=== PATIENT | female | born 1960 | race Caucasian/White ===

== ENCOUNTER 2018-12-02 19:36 | Emergency (ER) | payer OTHER ==
[2018-12-02 19:43] VITALS: BP 91/58; PULSE 92; TEMP 98.3; BMI 23.2
[2018-12-02] MEDS ORDERED: LIDOCAINE VISCOUS 2% ORAL/TOP 20 ML UNIT-DOSE CUP MM ONE (20:22)
[2018-12-02] MEDS ORDERED: FAMOTIDINE 20 MG/50 ML IVPB 20 MG/50 ML MG IVPB ONE ×2 (20:22→21:00)
[2018-12-02] MEDS ORDERED: MAG HYDROX/AL HYDROX/SIMETH 30 ML UNIT-DOSE CUP PO ONE (20:22)
[2018-12-02] MEDS ORDERED: SODIUM CHLORIDE 0.9% 500 ML INFUS.BAG IV ONE (20:22)
--- NOTE | 2018-12-02 20:22 | PDOC ---
History of Present Illness - General Chief Complaint: Nausea/Vomiting Stated Complaint: DIZZY,NAUSEA,DIABETIC - History of Present Illness Initial Comments: The patient is a 58F w/ a history of T2DM, s/p L second toe amputation, s/p R ureteral stent, and recent diagnosis of pyelonephritis on Bactrim who presents for 1 month N/V. She was seen yesterday in [facility] where she had a CT scan but states that her symptoms are not better. She reports the vomit is yellow, non- bloody, and the nausea is worse post-prandially 12/02/18 20:29 Patient w/ CT A&P on 12/02/2018 @ 0234 at [facility] Impression -Indwelling double pigtail right-sided ureteral stent extending from the right renal collecting system along the course of the right ureter and into the bladder -Moderate R-sided hydronephrosis and mild to moderate R-sided hydroureter despite the indwelling stent. Heterogenous enhancement of both kidneys more pronounced on the right side than the left. Findings could be secondary to stent malfunction and/or pyelonephritis. -Choleilthiasis. Nonspecific enhancement of the wall of the gallbladder. Intra and extrahepatic bile duct dilation. The etiology of which is not determined. Multiple etiologies could produce this appearance including bile duct stone. ( 4mm stone; extrahepatic bile duct 9.1mm) Cr there 1.2 Patient currently taking Bactrim for pyelonephritis Patient prescribed Zofran for nausea, but reports little symptomatic relief 12/02/18 21:27 Denies fevers/chills, DURAN, vision changes, chest pain, diarrhea, blood in stool or vomit, or changes in sensation/strength 12/03/18 00:35 Past History - Past Medical History Allergies/Adverse Reactions: Allergies Allergy/AdvReac Type Severity Reaction Status Date / Time No Known Allergies Allergy Verified 12/02/18 19:43 Home Medications: Ambulatory Orders Insulin (Does Not Know What Kind) 10/05/16 Ondansetron [Zofran Odt -] 4 mg SL TID #21 od.tablet 10/05/16 Oxycodone HCl/Acetaminophen [Percocet 5-325 mg Tablet] 1 tab PO Q6H #20 tablet MDD 4 10/05/16 Metoclopramide HCl [Reglan -] 10 mg PO QID #28 tablet 12/02/18 Ranitidine [Zantac -] 150 mg PO DAILY 14 Days #14 tablet 12/02/18 Anemia: No Asthma: No Cancer: No Cardiac Disorders: No CVA: No COPD: No CHF: No Dementia: No Diabetes: Yes GI Disorders: No Disorders: No HTN: No Hypercholesterolemia: No Liver Disease: No Seizures: No Thyroid Disease: No - Surgical History Abdominal Surgery: No Appendectomy: No Cardiac Surgery: No Cholecystectomy: No Lung Surgery: No Neurologic Surgery: No Orthopedic Surgery: No - Family Disease History Family Disease History: Diabetes: Father - Immunization History Immunization Up to Date: Yes - Suicide/Smoking/Psychosocial Hx Smoking History: Never smoked Have you smoked in the past 12 months: No Number of Cigarettes Smoked Daily: 0 Hx Alcohol Use: No Drug/Substance Use Hx: No Substance Use Type: None Hx Substance Use Treatment: No Review of Systems - Review of Systems Able to Perform ROS?: Yes Comments:: GENERAL/CONSTITUTIONAL: No fever or chills. No weakness HEAD, EYES, EARS, NOSE AND THROAT: No change in vision. No ear pain or discharge. No sore throat CARDIOVASCULAR: No chest pain or shortness of breath RESPIRATORY: Denies cough, hemoptysis GASTROINTESTINAL: per HPI GENITOURINARY: No dysuria, frequency, or change in urination MUSCULOSKELETAL: No joint or muscle swelling or pain. No neck or back pain SKIN: No rash NEUROLOGIC: No headache, vertigo, loss of consciousness, or change in strength/ sensation ENDOCRINE: No increased thirst. No abnormal weight change HEMATOLOGIC/LYMPHATIC: No anemia, easy bleeding, or history of blood clots ALLERGIC/IMMUNOLOGIC: No hives or skin allergy 12/02/18 20:01 Is the patient limited Namibian proficient: No *Physical Exam - Vital Signs Last Vital Signs Temp Pulse Resp BP Pulse Ox 98.3 F 92 H 18 91/58 L 100 12/02/18 19:40 12/02/18 19:40 12/02/18 19:40 12/02/18 19:40 12/02/18 19:40 - Physical Exam Comments: GENERAL: Awake, alert, and fully oriented, in no acute distress HEAD: No signs of trauma, normocephalic, atraumatic EYES: PERRLA, EOMI, sclera anicteric, conjunctiva clear ENT: Hearing grossly normal, nares patent, oropharynx clear without exudates. Moist mucosa LUNGS: No distress, speaks full sentences, clear to auscultation bilaterally HEART: Regular rate and rhythm, normal S1 and S2, no murmurs appreciated, peripheral pulses normal and equal bilaterally ABDOMEN: Soft, mild epigastric discomfort to palpation, denies outright pain, normoactive bowel sounds. No guarding, no rebound. No masses EXTREMITIES : Normal inspection, Normal range of motion, no edema. No clubbing or cyanosis NEUROLOGICAL: Cranial nerves II through XII grossly intact. Normal speech, normal gait, no focal sensorimotor deficits SKIN: Warm, Dry 12/02/18 20:02 Moderate Sedation - Procedure Monitoring Vital Signs: Procedure Monitoring Vital Signs Temperature 98.3 F 12/02/18 19:40 Pulse Rate 92 H 12/02/18 19:40 Respiratory Rate 18 12/02/18 19:40 Blood Pressure 91/58 L 12/02/18 19:40 O2 Sat by Pulse Oximetry (%) 100 12/02/18 19:40 ED Treatment Course - LABORATORY CBC & Chemistry Diagram: 12/02/18 21:00 12/02/18 21:00 Medical Decision Making - Medical Decision Making The pt is a 58F w/ a history of T2DM, s/p R ureteral stent, who presents for evaluation of 1month of N/V w/ generalized abdominal discomfort. ED Course CMP, CBC, Lipase, UA GI cocktail Reglan 1L NS 12/02/18 20:02 No leukocytosis No anemia 12/02/18 21:36 Cr 1.4 LFTs wnl Lytes wnl Lipase wnl 12/02/18 21:49 Patient tolerating PO in ED Plan for D/C w/ PCP, GI, general surgery f/u Rx for Reglan and Zantac Discharge instructions and return precautions given Patient in agreement and verbalized understanding Dispo: home 12/03/18 00:33 *DC/Admit/Observation/Transfer Diagnosis at time of Disposition: Nausea and vomiting Qualifiers: Vomiting type: unspecified Vomiting Intractability: non-intractable Qualified Code(s): R11.2 - Nausea with vomiting, unspecified Cholelithiasis Qualifiers: Cholelithiasis location: gallbladder Cholecystitis presence: without cholecystitis Biliary obstruction: with biliary obstruction Qualified Code(s): K80.21 - Calculus of gallbladder without cholecystitis with obstruction - Discharge Dispostion Disposition: HOME Condition at time of disposition: Good Decision to Admit order: No - Prescriptions Prescriptions: Metoclopramide HCl [Reglan -] 10 mg PO QID #28 tablet Ranitidine [Zantac -] 150 mg PO DAILY 14 Days #14 tablet - Referrals Referrals: Ariel Flowers MD [Staff Physician] - Edu Wilburn DO [Staff Physician] - Rayo Olguin MD [Staff Physician] - [facility] [place] [Provider Group] - Patient Instructions Printed Discharge Instructions: Zephyr Diet, DI for Vomiting -- Adult Additional Instructions: You were seen in the Emergency Department for evaluation of nausea and vomiting. Your labs were normal. You were treated with Reglan (nausea) and Zantac (antacid). A prescription for these medications were sent to the pharmacy that you specified, take as directed. Follow up with your primary care provider and the referrals provided within the next week. Return to the Emergency Department if you develop fevers, inability to tolerate liquids, intractable vomiting, blood in your vomit, worsening symptoms, or any new/concerning symptoms. Usted fue atendido en el Departamento de Emergencias para la evaluacin de nuseas y vmitos. Tus laboratorios radha normales. Usted fue tratado con Reglan (nusea) y Zantac (anticido). Se envi elvin receta para estos medicamentos a la farmacia que especific, tome segn las indicaciones. Naresh un seguimiento con lopez proveedor de atencin primaria y las referencias proporcionadas dentro de la prxima semana. Regrese al Departamento de Emergencias si desarrolla fiebre, incapacidad para tolerar lquidos, vmitos intratables, akua en lopez vmito, empeoramiento de los sntomas o sntomas nuevos o relacionados. Print Language: ALGERIAN - Post Discharge Activity
[2018-12-02] MEDS ORDERED: METOCLOPRAMIDE HCL INJECTION 10 MG/2 ML VIAL IVPUSH ONE (20:23)
--- NOTE | 2018-12-02 20:58 | PDOC ---
Attending Attestation - Resident Resident Name: Arthur Castano - ED Attending Attestation I have performed the following: I have examined & evaluated the patient, The case was reviewed & discussed with the resident, I agree w/resident's findings & plan, Exceptions are as noted - HPI HPI: 12/02/18 21:14 The patient is a 58 year old female, with a significant PMH of type 2 diabetes , s/p L second toe amputation, s/p R ureteral stent, and recent diagnosis of pyelonephritis (on Bactrim), who presents to the emergency department with nausea persisting for 1 month. The patient notes she had 5 episodes of vomiting today, yellow/nonbloody. The patient reports an inability to keep down food and liquid and food intake seems to worsen her nausea and results in pressure like burning epigastric pain. The patient notes she took zofran with no relief. The patient reports a mild abdominal discomfort which she attributes to her nausea. The patient denies chest pain, shortness of breath, headache and dizziness. Denies fever, chills, nausea, vomit, diarrhea and constipation. Denies dysuria, frequency, urgency and hematuria. Allergies: NKA Past surgical history: s/p L second toe amputation, s/p R ureteral stent Social history: No reported - Physicial Exam PE: 12/02/18 21:30 GENERAL: The patient is awake, alert, and fully oriented, Nontoxic - in no acute distress. HEAD: Normocephalic, atraumatic. EYES: extraocular movements intact, sclera anicteric, conjunctiva clear. ENT: Normal voice, dry mucous membranes. NECK: Normal range of motion, supple LUNGS: Breath sounds equal, clear to auscultation bilaterally. No wheezes, no rhonchi, no rales. HEART: Regular rate and rhythm, normal S1 and S2 without murmur, rub or gallop. ABDOMEN: Soft, nontender, No guarding, no rebound. No CVA tenderness EXTREMITIES: Normal range of motion, no edema. NEUROLOGICAL: No facial assymetry, Normal speech, PSYCH: Normal mood, normal affect. SKIN: Warm, Dry, normal turgor, - Medical Decision Making 12/02/18 20:48 58y F DM, sp left 2nd toe distal amptuation, R ureteral state (approx 1 month ago), current dx of pyeloneprhitis on bactrim presents with 1 month of nausea/ vomiting and inability to tolerate oral intake. Was given Zofran recently but is not helping her. Denies any fever/chills, hematemsis, diarrhea, mild abd discomfort wo j carlos pain, melena. She was seen [facility] this morning, with lab work , CBC unremarkble, chem showing intial derangements c/w dehdration and was repeated with improvment of bun/cr , had CT showing R hydronephrsos with stent i nplace, extrahepatic bile duct is 9mm without gb thickening or pericholecystic fluid, small stone seen near neck of duct. she came today due to inability totolerate oral intake, vomiting 5 x today. 12/02/18 21:31 suspect possible gastritis, consider possibe cholelithiasis as pt has had exensive workup this morning/last night, will dffer imaging will rechcekc labs will give ppepcid/malox, fluids will reassess
[2018-12-02] MEDS ORDERED: METOCLOPRAMIDE HCL INJECTION 10 MG/2 ML VIAL ONE (20:59)
[2018-12-02] MEDS ORDERED: LIDOCAINE VISCOUS 2% ORAL/TOP 20 ML UNIT-DOSE CUP ONE (20:59)
[2018-12-02] MEDS ORDERED: MAG HYDROX/AL HYDROX/SIMETH 30 ML UNIT-DOSE CUP ONE (21:00)
[2018-12-02 21:21] LABS: HEMATOCRIT 34.4 % (32.4-45.2); HEMOGLOBIN 11.9 GM/dL (10.7-15.3); MCH 29.3 pg (25.7-33.7); MCHC 34.6 g/dl (32.0-36.0); MEAN CELL VOLUME 84.8 fl (80-96); MEAN PLT VOLUME 7.4 fl (7.5-11.1); PLATELET COUNT 325 K/MM3 (134-434); RBC 4.05 M/mm3 (3.60-5.2); RDW 13.5 % (11.6-15.6); WHITE BLOOD COUNT 7.3 K/mm3 (4.0-10.0)
[2018-12-02 21:38] LABS: ALBUMIN 3.5 g/dl (3.4-5.0); ALK PHOS 105 U/L (45-117); ANION GAP 8 MMOL/L (8-16); BILIRUBIN,TOTAL 0.6 mg/dL (0.2-1); BLOOD UREA NITROGEN 20 mg/dL (7-18); CALCIUM 9.5 mg/dL (8.5-10.1); CHLORIDE 99 mmol/L (98-107); CO2 29 mmol/L (21-32); CREATININE 1.4 mg/dL (0.55-1.3); GLUCOSE,RANDOM 242 mg/dL (74-106); LIPASE 137 U/L (73-393); POTASSIUM 3.6 mmol/L (3.5-5.1); SGOT/AST 11 U/L (15-37); SGPT/ALT 17 U/L (13-61); SODIUM 137 mmol/L (136-145)
[2018-12-02 23:14] LABS: URINE APPEARANCE CLOUDY; URINE BILIRUBIN NEGATIVE (<2.0 mg/dL); URINE COLOR LTYELLOW; URINE GLUCOSE (UA) 2+ (NEGATIVE); URINE KETONE TRACE (NEGATIVE); URINE LEUK ESTERASE TRACE (NEGATIVE); URINE NITRITE NEGATIVE (NEGATIVE); URINE PROTEIN 2+ (NEGATIVE); URINE UROBILINOGEN NEGATIVE mg/dL (0.2-1.0)
[2018-12-02 23:21] LABS: EPI CELLS MANY /HPF (FEW); URINE BACTERIA RARE /hpf (NONE SEEN); URINE MUCUS RARE
== END 2018-12-03 00:51 | disposition home or self-care (01) ==
LOC: JER 19:36
PROC: 3E033GC Introduction of Other Therapeutic Substance into Peripheral Vein, Percutaneous Approach (ICD-10-PCS; principal; 2018-12-02)
PROC: 3E033GC Introduction of Other Therapeutic Substance into Peripheral Vein, Percutaneous Approach (ICD-10-PCS; 2018-12-02)
DX: K80.21 Calculus of gallbladder without cholecystitis with obstruction (principal); E11.9 Type 2 diabetes mellitus without complications; Z79.4 Long term (current) use of insulin; Z87.440 Personal history of urinary (tract) infections; Z96.0 Presence of urogenital implants; Z79.2 Long term (current) use of antibiotics; Z89.422 Acquired absence of other left toe(s)
CPT/HCPCS: 36415; 80053; 81003; 81015; 83690; 85027; 87086; 96365; 96375; 99283-25

== ENCOUNTER 2025-04-01 03:19 | Emergency (ER) | payer OTHER ==
[2025-04-01 03:25] VITALS: BP 186/67; PULSE 93; RESP 18; TEMP 98.6; BMI 26.2
[2025-04-01] MEDS ORDERED: LIDOCAINE 4% PATCH TP ONE (04:11)
[2025-04-01] MEDS: LIDOCAINE 5% TOPICAL PATCH TP ONE (04:12)
[2025-04-01] MEDS ORDERED: LIDOCAINE PATCH REMOVAL MC SCH (22:00)
== END 2025-04-01 04:13 | disposition home or self-care (01) ==
LOC: JER 03:19
DX: M79.662 Pain in left lower leg (principal); I10 Essential (primary) hypertension
CPT/HCPCS: 99283-25